=== PATIENT | male | born 1945 | race Caucasian/White ===

== ENCOUNTER 2017-10-02 07:00 | Day surgery (SDC) | payer OTHER ==
[~2017-10-02] VITALS: Ht 180.3 cm; Wt 90.7 kg
[~2017-10-02 07:00] MED LIST: FORTAMET1000 MG PO; HYZAAR 50-12.51 EACH PO; LANTUS SOL100 UNIT/1; LYRICA150 MG PO; OMEPRAZOLE40 MG PO; PROSCAR5 MG PO; TAMS0.4C PO
== END 2017-10-03 10:45 | disposition home or self-care (01) ==
LOC: CIR.AMB 07:00 → SURH 08:30 → EDSTATUS 08:30 → SURH 09:04 → MEDJ 12:13 → O/R 12:13 → MEDJ 12:13 → CIR.AMB 10-03 10:45 → O/R 10-03 15:44 → MEDJ 10-03 15:44
DX: N40.1 Benign prostatic hyperplasia with lower urinary tract symptoms (principal); R33.8 Other retention of urine

== ENCOUNTER 2018-04-12 18:40 | Outpatient (CLI) | payer OTHER | END 2018-04-12 18:58 | disposition home or self-care (01) | LOC: LAB 18:40 | DX: N30.00 Acute cystitis without hematuria (principal); B96.1 Klebsiella pneumoniae [K. pneumoniae] as the cause of diseases classified elsewhere ==

== ENCOUNTER 2019-09-20 05:55 | Day surgery (SDC) | payer OTHER ==
[~2019-09-20 05:55] MED LIST changes: +PRENISONE PO
== END 2019-09-20 15:30 | disposition home or self-care (01) ==
LOC: CIR.AMB 05:55
PROVIDERS: ATTEND Surgery
DX: N52.01 Erectile dysfunction due to arterial insufficiency (principal); Z20.828 Contact with and (suspected) exposure to other viral communicable diseases
CPT/HCPCS: 54405; C1813